=== PATIENT | male | born 1995 | race Caucasian/White ===

== ENCOUNTER 2019-07-23 10:51 | Emergency (ER) | payer OTHER ==
[~2019-07-23] VITALS: Ht 182.9 cm; Wt 93.0 kg
[2019-07-23 11:59] LABS: INFLUENZA A ANTIGEN Negative (Negative); INFLUENZA B ANTIGEN Negative (Negative)
[2019-07-23] MEDS ORDERED: FLONASE 0.05%50 MCG NASAL (12:16)
[2019-07-23] MEDS ORDERED: TESSALON PERLE100 M1 PO (12:16)
[2019-07-23] MEDS ORDERED: IBU600 MG PO (12:16)
[2019-07-23 12:27] VITALS: BP 113/64
[2019-07-24] MEDS ORDERED: TYLENOL WITH CO1 TA1 PO (15:55)
[2019-07-24] MEDS ORDERED: ZPAK PO (15:55)
== END 2019-07-23 12:29 | disposition home or self-care (01) ==
LOC: M.ERS 10:51
PROVIDERS: Nurse Practitioner Psychiatric/Mental Health
DX: J06.9 Acute upper respiratory infection, unspecified (principal)

== ENCOUNTER 2019-07-24 14:54 | Emergency (ER) | payer OTHER ==
[~2019-07-24] VITALS: Ht 182.9 cm; Wt 93.0 kg
[~2019-07-24 14:54] MED LIST: FLONASE 0.05%50 MCG NASAL; IBU600 MG PO; TESSALON PERLE100 M1 PO
[2019-07-24 15:30] LABS: INFLUENZA A ANTIGEN Negative (Negative)
[2019-07-24] MEDS ORDERED: TYLENOL WITH CO1 TA1 PO (15:55)
[2019-07-24] MEDS ORDERED: ZPAK PO (15:55)
[2019-07-24 16:52] VITALS: BP 120/60
== END 2019-07-24 16:53 | disposition home or self-care (01) ==
LOC: M.ERS 14:54
PROVIDERS: Physician Assistant
DX: J02.0 Streptococcal pharyngitis (principal); R51 Headache